=== PATIENT | female | born 1960 | race Caucasian/White ===

== ENCOUNTER 2020-08-04 10:41 | Outpatient (REF) | payer MEDICARE, SELFPAY | END 2020-08-04 10:42 | disposition home or self-care (01) | LOC: HO.LAB 10:41 | PROVIDERS: Visit Provider Internal Medicine | DX: Z20.828 Contact with and (suspected) exposure to other viral communicable diseases (principal) | CPT/HCPCS: C9803; U0003 ==

== ENCOUNTER 2020-08-13 13:45 | Outpatient (REF) | payer MEDICARE, SELFPAY | END 2020-08-13 13:46 | disposition home or self-care (01) | LOC: HO.LAB 13:45 | PROVIDERS: PCP Internal Medicine; Visit Provider Internal Medicine | DX: Z20.828 Contact with and (suspected) exposure to other viral communicable diseases (principal) | CPT/HCPCS: C9803; U0003 ==

== ENCOUNTER 2024-03-01 13:03 | Outpatient (AMB) | payer MEDICARE, SELFPAY ==
[2024-03-01 13:31] VITALS: BP 130/72; PULSE 63; TEMP 36.6; O2SAT 98; BMI 29.0
--- NOTE | 2024-03-01 13:31 | AM.OFFWIN_ITS ---
Intake Vital Signs 03/01/24 13:31 Height 5 ft 4 in Weight 169 lb BMI 29.0 BP 130/72 Blood Pressure Location Rt brachial Position Sitting Pulse 63 Pulse Source Pulse Oximeter Temp 97.8 F Temp Source Oral Pulse Oximetry (%) 98 Intake Visit Reasons: [employer] rash on back Intake Note: pt is here for rash on back suspects shingles Patient Tobacco Use Status: Never used Tobacco Allergies morphine [MORPHINE] Allergy (Unknown, Verified 03/01/24 13:32) UNKNOWN Sulfa (Sulfonamide Antibiotics) [SULFA (SULFONAMIDE ANTIBIOTICS)] Allergy (Unknown, Verified 03/01/24 13:32) RASH sulfur Allergy (Unknown, Verified 03/01/24 13:32) Unknown Do you need a note to return to daycare/school/sports/work: Yes HPI HPI Comments History of Present Illness Details This is a 63-year-old female with a past medical history of coronary artery disease s/p stenting, hyperlipidemia, hypertension oac-[id number]-[id number] diabetes presenting for evaluation of a burning rash that she first noticed 2 days ago. Patient has used hydrocortisone topically without relief. Patient has not noted any new lesions over the past 2 days. [facility] Social History Patient Tobacco Use Status: Never used Tobacco Review of Systems Const All systems reviewed & are unremarkable except as noted in HPI and below Reports no additional complaints Eyes Reports no additional complaints ENT Reports no additional complaints Card Reports no additional complaints Resp Reports no additional complaints GI Reports no additional complaints Reports no additional complaints Musc Reports no additional complaints Skin/Breast Reports lesions and Reports non-healing lesions Neuro Reports no additional complaints Psych Reports no additional complaints Endo Reports no additional complaints Alonzo/Lymph Reports no additional complaints Aller/Immun Reports no additional complaints Physical Exam Vital Signs: Last Vital Signs Temp 97.8 F 03/01/24 13:31 Pulse 63 03/01/24 13:31 BP 130/72 03/01/24 13:31 Pulse Ox 98 03/01/24 13:31 BMI result Body Mass Index 29.0 Const General: cooperative, healthy appearing, comfortable, no acute distress, well developed, alert, awake and Physically active Nutritional Appearance: average body habitus Orientation/consciousness: patient oriented x3 Limitations: no limitations Skin Other: 3cm x 4cm area of grouped papules and vescicles overlying the left medial thoracic region; no additional lesions noted on the left flank or left abdomen Lesions: lesion noted Neuro General: patient oriented x3 Psych Appearance: grossly normal Mental Status: mental status grossly normal Insight: Good insight present (Psych) Judgement: Good judgement present (Psych) Assessment & Plan Assessment & Plan (1) Herpes zoster: Code(s): B02.9 - Zoster without complications Qualifiers: Herpes zoster complications: without complications Qualified Code(s): B02.9 - Zoster without complications Plan: Valtrex t.i.d. x7 days, patient is instructed to use ibuprofen for any discomfort that may occur. Medications: New valacyclovir (Valtrex) 1,000 mg PO TID 21 tabs 0RF Coding Level of Care Code Est Pt Level 3 (07484) Diagnoses Herpes zoster without complication B02.9 Herpes zoster complications: without complications Time Spent (min) 20
== END 2024-03-01 14:01 | disposition home or self-care (01) ==
PROVIDERS: PCP Internal Medicine; Visit Provider Physician Assistant
DX: B02.9 Zoster without complications (principal)
CPT/HCPCS: 99213